=== PATIENT | female | born 1985 | race Caucasian/White ===

== ENCOUNTER → 2017-09-13 09:11 | Outpatient (CLI) | payer MEDICAID, SELFPAY ==
[2017-09-13 09:52] LABS: Amphetamine Urine VISTA NEGATIVE (<1000 ng/mL); Barbiturate Urine VISTA NEGATIVE (< 200 ng/mL); Benzodiazepine Urine VISTA POSITIVE (< 200 ng/mL); Cocaine Urine VISTA NEGATIVE (< 300 ng/mL); Ecstacy Urine VISTA NEGATIVE (< 500 ng/mL); Methadone Urine VISTA NEGATIVE (< 300 ng/mL); PCP Urine VISTA NEGATIVE (< 25 ng/mL); THC Urine VISTA NEGATIVE (< 50 ng/mL); Vista UDS pH Range 6
== END ==
PROVIDERS: Visit Provider Anesthesiology Pain Medicine
DX: F11.20 Opioid dependence, uncomplicated (principal)
CPT/HCPCS: 80307

== ENCOUNTER 2021-08-21 13:58 | Emergency (ER) | payer MEDICAID, SELFPAY ==
[2021-08-21 13:59] VITALS: BP 187/81; PULSE 108; RESP 18; TEMP 36.2; O2SAT 99; BMI 34.1
--- NOTE | 2021-08-21 14:02 | ED.RN ---
PT STATES SHE IS NOT SURE WHAT ANY OF HER ALLERGIC REACTIONS ARE AND CAN'T GIVE ANY SPECIFIC MEDICATIONS OTHER THAN GABAPENTIN THAT SHE IS ALLERGIC TO.
--- NOTE | 2021-08-21 14:35 | ED.RN ---
PT STATED SHE NEEDED TO GO HOME AND DECIDED SHE WASN'T GOING TO STAY ANY LONGER. PT TOLD THE SCREENER HER BODY IS GOING TO SHUT DOWN AND SHE JUST NEEDS TO GO HOME. ENCOURAGED PT TO STAY BUT SHE REFUSED. SASHA TOOK PT TO HER CAR IN HER WHEELCHAIR.
== END 2021-08-21 14:25 | disposition left against medical advice (07) ==
LOC: ED 14:52
DX: R52 Pain, unspecified (principal); Z53.21 Procedure and treatment not carried out due to patient leaving prior to being seen by health care provider